=== PATIENT | female | born 1990 | race Caucasian/White ===

== ENCOUNTER 2022-11-22 05:43 | Day surgery (SDC) | payer OTHER ==
[2022-11-17 13:56] VITALS: BP 132/90
[~2022-11-22] VITALS: Ht 175.3 cm; Wt 84.5 kg
--- NOTE | ~2022-11-22 | OR ---
[facility] [address], [place] [address] Draft DATE OF OPERATION: 11/22/2022 SURGEON: Henny Dupont DO NUT DEHYDRATOR OPERATOR: Isaak King DO. PROCEDURE: Diagnostic laparoscopy with chromopertubation. PREOPERATIVE DIAGNOSIS: Dysmenorrhea. POSTOPERATIVE DIAGNOSES: Dysmenorrhea, endometriosis. ANESTHESIA: General. COMPLICATIONS: None. BLOOD LOSS: 5 mL. FINDINGS: Significant endometriosis lesions, two clusters of multiple palpable lesions overlying left ovarian fossa, one directly overlying the left ureter, right uterosacral ligament, another cluster, this one appears to be white and scarring likely with deeper infiltration of the lesion overlying the path of the right ureter. Diffuse superficial lesions scattered across posterior cul-de-sac. Normal-appearing bladder. Normal-appearing right ovarian fossa. Normal-appearing bilateral ovaries and tubes. No spillage of dye noted into the tubes or beyond the tubes. Significant amount of dye noted in the vagina and perineum following attempted chromopertubation. INDICATIONS: The patient is a 32-year-old female with significant dysmenorrhea. She does desire fertility and is not interested in medical management with contraceptives at this time and does strongly desire diagnostic laparoscopy, possible excision of endometriosis and chromopertubation. Risks, benefits, alternatives were discussed and she elected to PATIENT NAME: CHERISE TREADWELL OPERATIVE REPORT DATE OF : [birth year] REPORT #: [id number] PHYSICIAN: HENNY DUPONT DO PCP: KRYSTAL SEXTON REPORT IS CONFIDENTIAL AND NOT TO BE RELEASED WITHOUT AUTHORIZATION [facility] [address], [place] [address] Draft proceed. PROCEDURE: She was taken back to the operating room where she was placed under general anesthesia and positioned in dorsal lithotomy. She was prepped and draped in normal sterile fashion. Oseguera catheter was placed. Anterior lip of the cervix was grasped with an Allis clamp and acorn uterine manipulator was placed without any difficulty through the cervix. Surgeon's gloves were changed. Attention was turned to the abdomen. Local anesthetic was injected infraumbilically and a 5 mm incision was made with a scalpel. Laparoscope was brought into the abdominal cavity via direct entry technique with a 5 mm Visiport. Intraabdominal placement was confirmed and peritoneum was achieved with CO2 gas. The patient was placed in Trendelenburg positioning to better visualize pelvic structures. Decision was made to proceed with a 2nd trocar site. Right lower quadrant was infiltrated with local anesthetic. Incision was made with a scalpel. A 5 mm trocar was introduced under direct visualization without difficulty or complication. The bowel was then able to be easily retracted from the pelvis with findings significant for multiple endometriosis lesions overlying bilateral ureters noted. Decision was made due to the extent of these lesions and sensitive location to recommend excision of endometriosis. Procedure to be done robotically and proceeded with chromotubation. Diluted methylene blue dye was instilled through the acorn uterine manipulator, a total of 90 mL. However, no spillage was noted into the tubes. No dilation of the tubes was noted and no spillage beyond the tubes was noted from either side. Upon further exam, significant amount of retrograde flow of methylene blue was noted staining the vagina and perineum. Crafton uterine manipulator was confirmed to be patent replaced and no change in the results with further installation of another 30 mL of methylene blue. Recommendation would be to perform hysteroscopy for possible cervical and/or uterine occlusion versus scarring at the time of robotic assisted excision of endometriosis lesions. All instrumentation was removed. Pneumoperitoneum was evacuated. Skin incisions were closed with 4-0 Monocryl. Oseguera catheter was removed. Sponge and instrument counts were correct and patient was taken to recovery in stable and satisfactory condition with plan for definitive surgical followup in the form of a robotic assisted excision of endometriosis and hysteroscopy as noted above. Henny Dupont DO EMZ/MODL /[id number] PATIENT NAME: CHERISE TREADWELL OPERATIVE REPORT DATE OF : [birth year] REPORT #: [id number] PHYSICIAN: HENNY DUPONT DO PCP: KRYSTAL SEXTON REPORT IS CONFIDENTIAL AND NOT TO BE RELEASED WITHOUT AUTHORIZATION [facility] [address], [place] [address] Draft Copies: ~ PATIENT NAME: CHERISE TREADWELL OPERATIVE REPORT DATE OF : [birth year] REPORT #: [id number] PHYSICIAN: HENNY DUPONT DO PCP: KRYSTAL SEXTON REPORT IS CONFIDENTIAL AND NOT TO BE RELEASED WITHOUT AUTHORIZATION
[~2022-11-22 05:43] MED LIST: B COMPLEX1 EACH PO; MAG-OXIDE400 MG PO; OMEGA 3 1,0001 EACH PO; OSTERA TABLET1 EACH PO; PROBIOTIC1 EAC1 PO
[2022-11-22 06:01] VITALS: BP 132/77
--- NOTE | 2022-11-22 08:41 | NUR ---
11/22/22 0841 Ely Knowles 0834 PT TO PACU ORAL AIRWAY IN PLACE, O2 @ 6L VIA MASK, FOGGING NOTED IN MASK.
[2022-11-22 09:08] VITALS: BP 118/69
--- NOTE | 2022-11-22 09:31 | NUR ---
0908: PT ARRIVES TO DS TREATMENT ROOM VIA STRETCHER DROWSY. PT AROUSES WITH VERBAL STIMULATION AND ABLE TO DENY PAIN OR NAUSEA. SIG OTHER AT BEDSIDE ON ARRIVAL. PT HAS URGE TO VOID, SITS AT SIDE OF BED PRIOR TO STANDING. SLOW, STEADY GAIT TO BATHROOM WITH RN ASSIST. PT ABLE TO VOID 100 MLS YELLOW URINE WITH NO PROBLEMS. BACK TO STRETCHER, WARM BLANKETS AND ICED WATER PROVIDED. CALL LIGHT WITHIN REACH, DC CRITERIA EXPLAINED.
[2022-11-22 10:08] VITALS: BP 124/79
--- NOTE | 2022-11-22 10:15 | NUR ---
IN PT ROOM FOR ASSESSMENT AND VS. PT IS A&O X4 W/ AT BEDSIDE. PT REPORTS PAIN 4 OR 5/10 AND STATES THIS IS TOLERABLE AND DENIES NEED FOR PRN PAIN MED AT THIS TIME. PT REPORTS NO NAUSEA, DIZZINESS, N/T, OR SOB. UMBILICUS SITE HAS NO SIGNS OF DRAINAGE AT THIS TIME RLQ DRESSING HAS SMALL AMOUNT OF OLD SHADOWING AT THIS TIME, BANDAIDS INTACT. ICE PACK IN PLACE ON ABDOMEN. PT GETTING DRESSED AT THIS TIME, ASSISTING. CALL LIGHT WITHIN REACH, NO FURTHER NEEDS.
--- NOTE | 2022-11-22 10:20 | NUR ---
IN PT ROOM FOR DISCHARGE EDUCATION. PT AND PT STATE VERBAL UNDERSTANDING AND NO FURTHER QUESTIONS AT THIS TIME. IV SITE DC'ED, WNL, GAUZE AND COBAN INTACT. PT ESCORTED OFF OF UNIT VIA WC BY THIS RN, ALL BELONGINGS IN PT POSSESSION. STANDBY ASSIST FOR PT TO PASSENGER SIDE OF 'S TRUCK. PT REPORTS NO FURTHER NEEDS AT THIS TIME.
== END 2022-11-22 10:25 | disposition home or self-care (01) ==
LOC: DS 05:43 → OPS 05:43 → DS 07:30 → OPS 10:25
PROVIDERS: ATTEND Obstetrics & Gynecology
PROC: 0UJ84ZZ Inspection of Fallopian Tube, Percutaneous Endoscopic Approach (ICD-10-PCS; 2022-11-22)
PROC: 3E0P3KZ Introduction of Other Diagnostic Substance into Female Reproductive, Percutaneous Approach (ICD-10-PCS; principal; 2022-11-22 07:30)
DX: N80.9 Endometriosis, unspecified (principal)
CPT/HCPCS: J0330; J1100; J1885; J2250; J2405; J2704; J2765; J3010; J7121

== ENCOUNTER 2024-02-08 05:55 | Day surgery (SDC) | payer OTHER ==
[~2024-02-08] VITALS: Ht 175.3 cm; Wt 90.9 kg
[~2024-02-08 05:55] MED LIST changes: +BIOTIN5 M1 PO; +FEVERFEW EXTRACT1 GM PO; +LACTATED RINGER'S 1,000 ML IV SCH; +NARATRIPTAN HC2.5 MG PO
[2024-02-08 06:11] VITALS: BP 131/94
[2024-02-08 06:33] LABS: HEMATOCRIT 40.2 % (35.0-50.0); HEMOGLOBIN 13.4 g/dL (12.0-18.0); MCH 28.4 (27-36); MCHC 33.2 g/dl (30-36); MCV 85.5 fl (81-99); RBC 4.7 M/ul (4.3-5.7); RDW 12.5 (10.5-15.0)
[2024-02-08] MEDS ORDERED: MIDAZOLAM HCL 2 MG/2 ML VIAL ONE (06:50)
[2024-02-08] MEDS ORDERED: propofoL 200 MG/20 ML VIAL ONE (06:52)
[2024-02-08] MEDS ORDERED: DEXAMETHASONE SOD PHOS 4 MG/ML VIAL ONE (06:52)
[2024-02-08] MEDS ORDERED: KETOROLAC TROMETHAMINE 30 MG/ML VIAL ONE (06:52)
[2024-02-08] MEDS ORDERED: LIDOCAINE HCL 2% 5 ML SDV ONE (06:52)
[2024-02-08] MEDS ORDERED: ROCURONIUM BROMIDE 50 MG/5 ML SYR ONE (06:52)
[2024-02-08] MEDS ORDERED: fentaNYL citrate 100 MCG/2 ML VIAL ONE (06:52)
[2024-02-08] MEDS ORDERED: ondansetron HCL 4 MG/2 ML VIAL ONE (06:52)
[2024-02-08] MEDS ORDERED: FAMOTIDINE 20 MG/ 2 ML VIAL IV SCH (07:00)
[2024-02-08] MEDS ORDERED: LIDOCAINE HCL 1% 5 ML SDV INJ ONE (07:00)
[2024-02-08] MEDS ORDERED: METOCLOPRAMIDE HCL 10 MG/2 ML SDV IV SCH (07:00)
[2024-02-08] MEDS ORDERED: IBLOOD GLUCOSE TEST STRIP 1 EA TEST VI PRN ×2 (07:00→08:30)
[2024-02-08] MEDS ORDERED: Methylene Blue 100 MG/10 ML SDV ONE (07:18)
[2024-02-08] MEDS ORDERED: dexmedeTOMIDine HCl 200 MCG/2 ML VIAL ONE (07:20)
[2024-02-08] MEDS ORDERED: SUGAMMADEX SODIUM 200 MG/2 ML ML ONE (07:23)
--- NOTE | 2024-02-08 07:32 | NUR ---
PT GONE FOR PROCEDURE. PROVIDED PRAYER.
[2024-02-08] MEDS ORDERED: ePHEDrine sulfate 50 MG/ML AMP ONE (07:37)
[2024-02-08] MEDS ORDERED: GLYCOPYRROLATE 1 MG/5 ML MDV ONE (07:55)
[2024-02-08] MEDS ORDERED: LACTATED RINGER'S 1,000 ML IV ONE (08:02)
[2024-02-08] MEDS ORDERED: SEVOFLURANE 250 ML BTL INH ONE (08:27)
[2024-02-08] MEDS ORDERED: LACTATED RINGER'S 1,000 ML IV SCH (08:30)
[2024-02-08] MEDS ORDERED: PROCHLORPERAZINE EDISYLATE 10 MG/2 ML VIAL IV PRN (08:30)
[2024-02-08] MEDS ORDERED: MAGNESIUM HYDROXIDE/AL HYDROX 30 ML CUP PO PRN (08:30)
[2024-02-08] MEDS ORDERED: METOCLOPRAMIDE HCL 10 MG/2 ML SDV IV PRN (08:30)
[2024-02-08] MEDS ORDERED: MORPHINE SULFATE 10 MG/ML VIAL IV PRN (08:30)
[2024-02-08] MEDS ORDERED: OXYCODONE/APAP 5/325 TAB PO PRN (08:30)
[2024-02-08] MEDS ORDERED: IBUPROFEN 800 MG TAB PO PRN (08:30)
[2024-02-08] MEDS ORDERED: NALOXONE HCL 0.4 MG SYR IV PRN ×2 (08:30)
[2024-02-08] MEDS ORDERED: fentaNYL citrate 50 MCG/ML SDV IV PRN (08:30)
[2024-02-08] MEDS ORDERED: ondansetron HCL 4 MG/2 ML VIAL IV PRN ×2 (08:30)
[2024-02-08] MEDS ORDERED: ondansetron HCL 4 MG TAB PO PRN (08:30)
[2024-02-08] MEDS ORDERED: FAMOTIDINE 20 MG TAB PO PRN (08:30)
[2024-02-08 08:56] VITALS: BP 134/74
--- NOTE | 2024-02-08 09:02 | NUR ---
PATIENT RETURNS FROM PACU AWAKE, ALERT, AND ORIENTED. SHE DENIES ANY NAUSEA AND IS EATING AND DRINKING WITHOUT DIFFICULTY. SHE REPORTS HER PAIN BEING A 3/10 AND IT IS TOLERABLE. BED IS IN LOWEST POSITION AND CALL LIGHT IS WITHIN REACH. I REVIEWED WITH PATIENT THAT SHE IS TO STAY HERE FOR AT LEAST AN HOUR WHILE SHE MEETS ALL OF HER MILESTONES, INCLUDING URINATING, EATING, DRINKING, AND AMBULATING AND SHE UNDERSTANDS. SHE DENIES ANY NEEDS A THIS TIME.
--- NOTE | 2024-02-08 09:10 | NUR ---
PATIENT IS UP TO USE RESTROOM AT THIS TIME STATING THAT SHE FEELS THE URGE TO VOID. PATIENT IS STEADY ON HER FEET WHILE WALKING AND DENIES ANY DIZZINESS, LIGHTHEADEDNESS, OR NAUSEA WHILE STANDING/WALKING.
--- NOTE | 2024-02-08 09:11 | NUR ---
02/08/24 0911 Nena Pedroza 0820- PT ARRIVES TO THE PACU WITH AN ORAL AIRWAY IN PLACE AND 6L OF O2 VIA MASK. PT IN SEMI FOWLERS. RESP EVEN AND UNLABORED. NO FURTHER AIRWAY SUPPORT NEEDED. LR INFUSING IN L HAND. ABDOMEN IS SOFT AND NON DISTENDED. LAP SITES ARE CLEAN DRY AND INTACT. ALL MONITORS IN PLACE. VSS. 0826- PT REACTIVE TO VERBAL STIMULI AND ABLE TO FOLLOW COMMANDS. PT ORAL AIRWAY REMOVED AND O2 TURNED OFF. PT KEEPS EYES CLOSED AND DENIES PAIN AND NAUSEA. PT WAKES EASILY TO VERBAL STIMULI. 0840- MD AT BEDSIDE TALKING WITH PATIENT. PT TEARFUL AND REPORTS THAT IT IS EMOTIONAL AND NOT DUE TO PAIN. 0850- PT RETURNED TO DS. REPORT GIVEN TO JACK VILLAOGMEZ AT BEDSIDE. LR INFUSING IN L HAND. DRESSINGS CDI, AND ASSESSED WITH JACK RN. WATER AND PUDDING GIVEN. VITAL SIGNS OBTAINED FOR DS. BED IN LOWEST POSITION, CALL LIGHT GIVEN AND RAILS IN THE UPRIGHT POSITION. CARE FOR PATIENT TURNED OVER AT THIS TIME.
--- NOTE | 2024-02-08 09:15 | NUR ---
PATIENT VOIDED 275ML OF CLEAR YELLOW URINE. MESH UNDERWEAR AND NEW PERIPAD PROVIDED FOR PATIENT. NO BLOOD IS NOTED ON OLD PERIPAD DISCARDED BY PATIENT. PATIENT AMBULATES BACK TO HER ROOM WITHOUT DIFFICULTY
[2024-02-08 09:50] VITALS: BP 137/84
--- NOTE | 2024-02-08 09:50 | NUR ---
PATIENT REPORTS FEELING WELL. SHE RATES HER PAIN A 4/10 AND DENIES ANY NAUSEA/VOMITING. AT THIS TIME PATIENT HAS MET ALL OF HER MILESTONES INCLUDING EATING/DRINKIG, VOIDING, AMBULATING, AND HER NAUSEA AND PAIN ARE UNDER CONTROL. I OFFERED HER SOME IBUPROFEN BEFORE SHE GOES HOME AND SHE DECLINED. SHE FEELS GOOD AND STATES THAT SHE IS READY TO GO HOME. ALLOWED PATIENT TO DRESS WITH THE ASSISTANCE OF HER . VITAL SIGNS WERE REASSESSED AND WERE WDL. WE DISCUSSED IN DETAIL HER DISCHARGE INSTRUCTIONS. SHE UNDERSTANDS NO DRIVING 24 HOURS AFTER ANESTHESIA AND NO DRIVING WHILE TAKING NARCOTICS. ALL OTHER TEACHINGS SHE EXPRESSED UNDERSTANDING. TO BRING THE CAR TO THE FRONT OF THE HOSPITAL. IV REMOVED FROM LEFT HAND. GAUZE AND COBAN PLACED AT SITE. PATIENT THEN DISCHARGED FROM UNIT VIA WHEELCHAIR.
--- NOTE | 2024-02-13 09:53 | OR ---
[facility] [address] [place], [place] [address] Signed DATE OF OPERATION: 02/08/2024 SURGEON: Ivett Baumann MD SUPREME COURT JUDGE: HOUSTON King DO PREOPERATIVE DIAGNOSES: Secondary dysmenorrhea, pelvic pain, history of endometriosis. POSTOPERATIVE DIAGNOSIS: Recurrent severe endometriosis, stage 3. PROCEDURE PERFORMED: Diagnostic laparoscopy. ANESTHESIA: General ET. ESTIMATED BLOOD LOSS: Minimal. DRAINS: None. INDICATIONS AND FINDINGS: The patient is a 33-year-old female who has a history of endometriosis diagnosed and treated approximately two years ago and is now having recurrent pain. She did not use anything to prevent recurrent endometriosis following her last procedure, and she did not aggressively pursue . At this point, she does wish to proceed with and for treatment of her pain. At the time of surgery, exam under anesthesia was normal. At the time of laparoscopy, however, there was endometriosis which was superficial over the right uterosacral ligament and into the cul-de-sac. These lesions were superficial, bubbly yellow type lesions. There was a single superficial dark nodule in the upper right uterosacral ligament. The left ovary, however, was densely adhesed to the posterior broad ligament with apparent endometrioma. There also appeared to be deep endometriosis medial to the ovary into the broad ligament as well. The right ovary appeared normal. PROCEDURE IN DETAIL: Electronically Signed By: IVETT BAUMANN MD 02/13/24 0953 PATIENT NAME: CHERISE TREADWELL OPERATIVE REPORT DATE OF : [birth year] REPORT #: [id number] PHYSICIAN: IVETT BAUMANN MD PCP: KRYSTAL SEXTON REPORT IS CONFIDENTIAL AND NOT TO BE RELEASED WITHOUT AUTHORIZATION [facility] [address] [place], [place] [address] Signed The patient was prepped and draped in the dorsal lithotomy position. A weighted speculum was placed. The anterior lip of the cervix was visualized and grasped with single-tooth tenaculum. The cavity was sounded to 10 cm. The endocervical canal was then dilated and the Jessica manipulator was inserted and the balloon inflated at the fundus. Attention was then directed above. The infraumbilical area was injected with 0.5% Marcaine plain. An incision was made with a knife, and each layer was serially elevated and incised until the fascia was opened and identified. Stay sutures of 0 Vicryl were placed. The peritoneum was opened bluntly and a Patricia cannula was placed. The balloon was inflated. Placement of the scope confirmed proper positioning. CO2 was introduced in the abdomen under low pressures. The abdomen was appropriately distended and a secondary port was placed on the left. This area was transilluminated, injected with the Marcaine, incision made with a knife and a 5 mm port placed under direct vision. The pelvis was thoroughly evaluated. The minimal endometriosis was amenable to treatment--the endometriosis over the right uterosacral ligament and the cul-de-sac but would do nothing to impact the most severe disease affecting the left ovary and deep endometriosis into the left broad ligament. It was felt the patient should be referred for definitive treatment of the endometriosis. As such, after documenting findings, procedure was terminated. The instruments removed from the abdomen after allowing as much CO2 as possible to escape. The fascial incision of the umbilicus was re-identified and closed with a running suture of 0 Vicryl. The skin incisions were closed with subcuticular sutures of 3-0 Vicryl Rapide. Attention was directed down below and the manipulator removed after deflating the balloon. There was some bleeding from the tenaculum site, which did not respond to pressure and a [id number] suture of 0 chromic was placed with good hemostasis noted. All sponge and needle counts were correct. She was taken to recovery room in good condition. Ivett Baumann MD PJW/LYNN /[id number] Copies: ~ Electronically Signed By: IVETT BAUMANN MD 02/13/24 0953 PATIENT NAME: CHERISE TREADWELL OPERATIVE REPORT DATE OF : [birth year] REPORT #: [id number] PHYSICIAN: IVETT BAUMANN MD PCP: KRYSTAL SEXTON REPORT IS CONFIDENTIAL AND NOT TO BE RELEASED WITHOUT AUTHORIZATION
== END 2024-02-08 09:55 | disposition home or self-care (01) ==
LOC: DS 05:55 → OPS 05:55 → DS 07:30 → OPS 07:30
PROVIDERS: ATTEND Obstetrics & Gynecology
PROC: 0UJ34ZZ Inspection of Ovary, Percutaneous Endoscopic Approach (ICD-10-PCS; principal; 2024-02-08 07:30)
DX: N80.122 Deep endometriosis of left ovary (principal); N80.3B2 Deep endometriosis of the left uterosacral ligament; N80.3A1 Superficial endometriosis of the right uterosacral ligament; N80.329 Endometriosis of the posterior cul-de-sac, unspecified depth; N73.6 Female pelvic peritoneal adhesions (postinfective); G43.009 Migraine without aura, not intractable, without status migrainosus; L40.50 Arthropathic psoriasis, unspecified; L40.9 Psoriasis, unspecified; Z79.899 Other long term (current) drug therapy
CPT/HCPCS: 00790; 36415; 84703; 85027; J1100; J1885; J2001; J2250; J2405; J2704; J2765; J3010; J3490; J7121